=== PATIENT | female | born 1990 | race Caucasian/White ===

== ENCOUNTER 2017-03-22 09:39 | Emergency (ER) | payer BC ==
[2017-03-22] MEDS ORDERED: NS 0.9% 1000 ML* 1,000 ML IV ONE ×2 (09:59→11:13)
[2017-03-22] MEDS ORDERED: lamoTRIgine TAB(*) 100 MG PO ONE (10:00)
[2017-03-22] MEDS ORDERED: Topiramate TAB(*) 100 MG PO ONE (10:00)
[2017-03-22 10:39] LABS: Hematocrit 39 % (35-47); Hemoglobin 12.5 g/dl (12.0-16.0); Mean Corpuscular HGB Conc 33 g/dl (31-36); Mean Corpuscular Hemoglobin 30 pg (27-31); Mean Corpuscular Volume 91 fL (80-97); Mean Platelet Volume 8 um3 (7.4-10.4); Red Blood Count 4.21 10^6/ul (4.0-5.4); Red Cell Distribution Width 14 % (10.5-15)
[2017-03-22 10:49] LABS: Albumin 4.9 g/dL (3.2-5.2); BUN/Creatinine Ratio 18.9 (8-20); Calcium 9.3 mg/dL (8.6-10.3); EGFR African American 121.1 (>60); EGFR Non-African American 94.1 (>60); Globulin 2.6 g/dL (2-4); Potassium 3.6 mmol/L (3.5-5.0); Total Bilirubin 0.3 mg/dL (0.2-1.0); Total Protein 7.5 g/dL (6.4-8.9)
[2017-03-22 13:35] LABS: BUN/Creatinine Ratio 22.7 (8-20); Calcium 9.6 mg/dL (8.6-10.3); EGFR African American 138.2 (>60); EGFR Non-African American 107.4 (>60)
--- NOTE | 2017-03-22 13:59 | ED ---
Bessy Hardy Edward, scribed for Maria Del Carmen Broussarduel on 03/22/17 at 0948 . Neurological HPI - HPI Summary HPI Summary: 26 y/o female BIBA s/p suddent onset seizure this morning at around 09:00. The symptoms were not aggravated or alleviated with anything. Pt last had a seizure one week ago. Pt did not take her evening medications yesterday. Denies CP, KIRKPATRICK or any head injuries. PMHx epilepsy. Per triage note, the pt was being held by [employer] for DWI. Her meds are in custody. She was also drinking at a wedding. - History of Current Complaint Chief Complaint: EDSeizure Stated Complaint: SEIZURE Hx Obtained From: Patient Onset/Duration: Sudden Onset, Started hours ago - This morning at 09:00 Number of Seizures: 1 Associated Signs and Symptoms: Positive: Negative - Allergy/Home Medications Allergies/Adverse Reactions: Allergies Allergy/AdvReac Type Severity Reaction Status Date / Time No Known Allergies Allergy Verified 03/22/17 09:43 PMH/Surg Hx/FS Hx/Imm Hx Previously Healthy: No Neurological History: Reports: Other Neuro Impairments/Disorders - Epilepsy - Family History Known Family History: Negative: Cardiac Disease, Diabetes, Seizure Disorder - Social History Alcohol Use: Occasionally Hx Substance Use: Yes Substance Use Type: Reports: Marijuana Smoking Status (MU): Never Smoked Tobacco Review of Systems Constitutional: Negative Eyes: Negative ENT: Negative Cardiovascular: Negative Respiratory: Negative Gastrointestinal: Negative Genitourinary: Negative Musculoskeletal: Negative Skin: Negative Neurological: Other - 1x seizure this morning Psychological: Normal All Other Systems Reviewed And Are Negative: Yes Physical Exam Triage Information Reviewed: Yes Vital Signs On Initial Exam: Initial Vitals Temp Pulse Resp BP Pulse Ox 97.7 F 116 18 124/72 100 03/22/17 09:40 03/22/17 09:40 03/22/17 09:40 03/22/17 09:40 03/22/17 09:40 Vital Signs Reviewed: Yes Appearance: Positive: Well-Appearing, No Pain Distress Skin: Positive: Warm, Skin Color Reflects Adequate Perfusion, Dry Head/Face: Positive: Normal Head/Face Inspection Eyes: Positive: EOMI, GUALBERTO ENT: Positive: Normal ENT inspection Neck: Positive: Supple, Nontender Respiratory/Lung Sounds: Positive: Clear to Auscultation, Breath Sounds Present Cardiovascular: Positive: RRR, Pulses are Symmetrical in both Upper and Lower Extremities Abdomen Description: Positive: Nontender, Soft Bowel Sounds: Positive: Present Musculoskeletal: Positive: Normal, Strength/ROM Intact Neurological: Positive: Sensory/Motor Intact, Alert, Oriented to Person Place, Time, Other - Lethargic Diagnostics - Vital Signs Vital Signs Temp Pulse Resp BP Pulse Ox 03/22/17 13:00 98 106/63 100 03/22/17 12:47 120/66 03/22/17 12:46 106 99 03/22/17 12:00 107 101/65 99 03/22/17 11:30 86 94/52 97 03/22/17 11:00 88 105/66 98 03/22/17 10:41 108/73 03/22/17 10:21 104 98 03/22/17 10:00 98 109/74 96 03/22/17 09:59 98 96 03/22/17 09:55 97.7 F 112 16 124/72 100 03/22/17 09:40 97.7 F 116 18 124/72 100 - Laboratory Lab Results: Lab Results 03/22/17 03/22/17 03/22/17 Range/Units 09:45 09:45 12:25 WBC 14.0 H (3.5-10.8) 10^3/ul RBC 4.21 (4.0-5.4) 10^6/ul Hgb 12.5 (12.0-16.0) g/dl Hct 39 (35-47) % MCV 91 (80-97) fL MCH 30 (27-31) pg MCHC 33 (31-36) g/dl RDW 14 (10.5-15) % Plt Count 334 (150-450) 10^3/ul MPV 8 (7.4-10.4) um3 Neut % (Auto) 68.9 (38-83) % Lymph % (Auto) 21.8 L (25-47) % Braxton % (Auto) 6.4 (1-9) % Eos % (Auto) 2.3 (0-6) % Baso % (Auto) 0.6 (0-2) % Absolute Neuts (auto) 9.6 H (1.5-7.7) 10^3/ul Absolute Lymphs (auto) 3.1 (1.0-4.8) 10^3/ul Absolute Monos (auto) 0.9 H (0-0.8) 10^3/ul Absolute Eos (auto) 0.3 (0-0.6) 10^3/ul Absolute Basos (auto) 0.1 (0-0.2) 10^3/ul Absolute Nucleated RBC 0 10^3/ul Nucleated RBC % 0 Sodium 139 138 (133-145) mmol/L Potassium 3.6 4.0 (3.5-5.0) mmol/L Chloride 107 107 (101-111) mmol/L Carbon Dioxide 12 L* 22 (22-32) mmol/L Anion Gap 20 H 9 (2-11) mmol/L BUN 14 15 (6-24) mg/dL Creatinine 0.74 0.66 (0.51-0.95) mg/dL Est GFR ( Amer) 121.1 138.2 (>60) Est GFR (Non-Af Amer) 94.1 107.4 (>60) BUN/Creatinine Ratio 18.9 22.7 H (8-20) Glucose 88 85 (70-100) mg/dL Calcium 9.3 9.6 (8.6-10.3) mg/dL Total Bilirubin 0.30 (0.2-1.0) mg/dL AST 24 (13-39) U/L ALT 14 (7-52) U/L Alkaline Phosphatase 83 (34-104) U/L Total Protein 7.5 (6.4-8.9) g/dL Albumin 4.9 (3.2-5.2) g/dL Globulin 2.6 (2-4) g/dL Albumin/Globulin Ratio 1.9 (1-3) Beta HCG, Quant 0.90 mIU/mL Result Diagrams: 03/22/17 09:45 03/22/17 12:25 Lab Statement: Any lab studies that have been ordered have been reviewed, and results considered in the medical decision making process. Course/Dx - Course Assessment/Plan: 26 y/o female BIBA s/p suddent onset seizure this morning. The symptoms were not aggravated or alleviated with anything. Pt last had a seizure one week ago. Pt did not take her evening medications yesterday. Denies CP, KIRKPATRICK or any head injuries. PMHx epilepsy. Per triage note, the pt was being held by [facility] for DWI. Her meds are in custody. She was also drinking at a wedding. pt feels fine at present so Pt will be d/c home. - Diagnoses Provider Diagnoses: Seizure Discharge - Discharge Plan Condition: Stable Disposition: HOME Patient Education Materials: Recurrent Seizures in Adults (ED) Referrals: Non Staff,Doctor [Primary Care Provider] - 3 Days (PLEASE F/U IN 2-3 DAYS) The documentation as recorded by the Bessy rosario Edward accurately reflects the service I personally performed and the decisions made by , Pavan Broussard.
[2017-03-22 14:18] VITALS: BP 94/67
== END 2017-03-22 14:41 | disposition home or self-care (01) ==
LOC: ED 09:39
DX: R56.9 Unspecified convulsions (principal)
CPT/HCPCS: 36415; 80048; 80053; 84702; 85025; 99283; A9270-GY